=== PATIENT | female | born 1980 | race Caucasian/White ===

== ENCOUNTER → 2020-09-21 | Outpatient (CLI) | payer OTHER | END | disposition home or self-care (01) | LOC: PRENATAL 11:00 | PROVIDERS: ATTEND Obstetrics & Gynecology Maternal & Fetal Medicine | DX: Z36.89 Encounter for other specified antenatal screening (principal); O36.80X1 Pregnancy with inconclusive fetal viability, fetus 1; O09.521 Supervision of elderly multigravida, first trimester; Z3A.12 12 weeks gestation of pregnancy ==

== ENCOUNTER 2020-11-16 15:29 | Emergency (ER) | payer OTHER ==
[~2020-11-16] VITALS: Ht 165.1 cm; Wt 65.8 kg
[2020-11-16] MEDS ORDERED: LEVOTHYROXINE25 MCG (16:09)
[2020-11-16] MEDS ORDERED: PRENATAL + DHA1 EAC1 (16:09)
[2020-11-16] MEDS ORDERED: OMEGA 3 1,0001 EACH (16:09)
[2020-11-16] MEDS ORDERED: NP THYROID90 MG (16:10)
[2020-11-16] MEDS ORDERED: FLAGYL500MG PO (20:19)
[2020-11-16] MEDS ORDERED: PEPCID AC20 MG PO (20:19)
== END 2020-11-16 21:09 | disposition home or self-care (01) ==
LOC: ER 15:29
DX: O26.892 Other specified pregnancy related conditions, second trimester (principal); R19.7 Diarrhea, unspecified; Z3A.20 20 weeks gestation of pregnancy

== ENCOUNTER → 2020-11-20 | Outpatient (CLI) | payer OTHER ==
[~2020-11-20] MED LIST: FLAGYL500MG PO; LEVOTHYROXINE25 MCG; NP THYROID90 MG; OMEGA 3 1,0001 EACH; PEPCID AC20 MG PO; PRENATAL + DHA1 EAC1
== END | disposition home or self-care (01) ==
LOC: PRENATAL 11-09 08:00
PROVIDERS: ATTEND Obstetrics & Gynecology Maternal & Fetal Medicine
DX: O35.0XX1 Maternal care for (suspected) central nervous system malformation in fetus, fetus 1 (principal); O35.3XX1 Maternal care for (suspected) damage to fetus from viral disease in mother, fetus 1; O98.512 Other viral diseases complicating pregnancy, second trimester; O09.522 Supervision of elderly multigravida, second trimester; O99.891 Other specified diseases and conditions complicating pregnancy; Z36.89 Encounter for other specified antenatal screening; Z3A.20 20 weeks gestation of pregnancy

== ENCOUNTER 2022-03-31 08:07 | Outpatient (CLI) | payer OTHER | END 2022-03-31 09:34 | disposition home or self-care (01) | LOC: PRENATAL 08:07 | PROVIDERS: ATTEND Obstetrics & Gynecology Maternal & Fetal Medicine | DX: O36.80X0 Pregnancy with inconclusive fetal viability, not applicable or unspecified (principal); O09.529 Supervision of elderly multigravida, unspecified trimester; Z3A.10 10 weeks gestation of pregnancy; Z88.8 Allergy status to other drugs, medicaments and biological substances ==